=== PATIENT | male | born 1995 | race Two or more races ===

== ENCOUNTER 2023-03-19 13:12 | Emergency (ER) | payer OTHER ==
--- NOTE | 2023-03-19 14:04 | RAD REPORT ---
EXAM DESCRIPTION: CT - Stone Protocol - 03/19/2023 1:42 pm CLINICAL HISTORY: Abdominal pain. Right flank pain COMPARISON: None. TECHNIQUE: Computed axial tomography of the abdomen pelvis was obtained without oral or IV contrast. Lack of IV and oral contrast limits evaluation of solid organs, appendix, bowel, and vessels. Doll l reformatted images were obtained and reviewed. All CT scans are performed using dose optimization technique as appropriate and may include automated exposure control or mA/KV adjustment according to patient size. FINDINGS: A renal calculus is not seen. An ureteral calculus is not noted. A bladder calculus is not present. No hydronephrosis The liver, spleen, pancreas and adrenals appear grossly normal There is no evidence of diverticulitis. The appendix appears normal Small umbilical hernia IMPRESSION: Negative for a genitourinary calculus
[2023-03-19] MEDS ORDERED: KETOROLAC 30 MG/ML INJ ONE (14:18)
[2023-03-19 14:28] LABS: Specific Gravity 1.005 (1.005-1.030); Urine Bacteria <20 /HPF (<20); Urine Bilirubin NEGATIVE (Negative); Urine Blood Negative (Negative); Urine Clarity Clear (Clear); Urine Color Colorless (Yellow); Urine Glucose NEGATIVE (Negative); Urine Mucus Slight /HPF (None Seen); Urine Protein NEGATIVE (Negative); Urine RBC <5 /HPF (None Seen); Urine Urobilinogen Normal (Normal); Urine pH 5.5 (5.0-7.0)
--- NOTE | 2023-03-19 14:31 | EDPHYS ---
Physician Documentation [facility] Name: Cheyenne Dudley Age: 27 yrs Sex: Male : 1995 Arrival Date: 03/19/2023 Time: 13:12 Bed 14 Private MD: ED Physician Vilma Longoria HPI: 03/19 14:38 This 27 yrs old [place] Male presents to ER via Ambulatory with complaints of Possible snw Kidney Stone. 14:38 Onset: The symptoms/episode began/occurred 2 week(s) ago, and became persistent. snw Associated signs and symptoms: Pertinent positives: hematuria. pt was working on a vessel and had left flank pain, hematuria. Tx per vessel MD, tramadol. Pt brought pictures of recently passed calculi x 3. States he is feeling better but has lower back pain with worsening on lifting. Pt notes he does drink excess caffeine.. Historical: - Allergies: 13:33 No Known Allergies; ll1 - PMHx: 13:33 None; ll1 - PSHx: 13:33 None; ll1 - Immunization history:: Adult Immunizations up to date. - Social history:: Smoking status: Patient denies any tobacco usage or history of. ROS: 14:35 Constitutional: Negative for fever, chills, and weight loss, Eyes: Negative for injury, snw pain, redness, and discharge, ENT: Negative for injury, pain, and discharge, Neck: Negative for injury, pain, and swelling, Cardiovascular: Negative for chest pain, palpitations, and edema, Respiratory: Negative for shortness of breath, cough, wheezing, and pleuritic chest pain, Abdomen/GI: Negative for abdominal pain, nausea, vomiting, diarrhea, and constipation, 14:35 Back: Positive for pain at rest, pain with movement, flank pain, Exam: 14:38 Constitutional: This is a well developed, well nourished patient who is awake, alert, snw and in no acute distress. Head/Face: Normocephalic, atraumatic. Eyes: Pupils equal round and reactive to light, extra-ocular motions intact. Lids and lashes normal. Conjunctiva and sclera are non-icteric and not injected. Cornea within normal limits. Periorbital areas with no swelling, redness, or edema. ENT: Nares patent. No nasal discharge, no septal abnormalities noted. Tympanic membranes are normal and external auditory canals are clear. Oropharynx with no redness, swelling, or masses, exudates, or evidence of obstruction, uvula midline. Mucous membranes moist. Neck: Trachea midline, no thyromegaly or masses palpated, and no cervical lymphadenopathy. Supple, full range of motion without nuchal rigidity, or vertebral point tenderness. No Meningismus. Chest/axilla: Normal chest wall appearance and motion. Nontender with no deformity. No lesions are appreciated. Cardiovascular: Regular rate and rhythm with a normal S1 and S2. No gallops, murmurs, or rubs. Normal PMI, no JVD. No pulse deficits. Respiratory: Lungs have equal breath sounds bilaterally, clear to auscultation and percussion. No rales, rhonchi or wheezes noted. No increased work of breathing, no retractions or nasal flaring. Abdomen/GI: Soft, non-tender, with normal bowel sounds. No distension or tympany. No guarding or rebound. No evidence of tenderness throughout. Skin: Warm, dry with normal turgor. Normal color with no rashes, no lesions, and no evidence of cellulitis. MS/ Extremity: Pulses equal, no cyanosis. Neurovascular intact. Full, normal range of motion. Neuro: Awake and alert, GCS 15, oriented to person, place, time, and situation. Cranial nerves II-XII grossly intact. Motor strength 5/5 in all extremities. Sensory grossly intact. Cerebellar exam normal. Normal gait. Psych: Awake, alert, with orientation to person, place and time. Behavior, mood, and affect are within normal limits. 14:38 Back: pain, that is mild, that is moderate, of the low back area, Vital Signs: 13:32 BP 143 / 90; Pulse 109; Resp 18; Temp 99.1; Pulse Ox 100% ; Weight 100 kg; Height 5 ft. ll1 7 in. ; Pain 5/10; 14:30 BP 114 / 59; Pulse 85; Resp 16; Pulse Ox 98% on R/A; eh3 13:32 Body Mass Index 34.53 (100.00 kg, 170.18 cm) ll1 13:32 Pain Scale: Adult ll1 MDM: 13:36 Patient medically screened. snw 14:33 Differential diagnosis: viral Infection, bacterial infection, UTI, renal calculi. Data snw reviewed: vital signs, nurses notes, lab test result(s), radiologic studies, CT scan. I considered the following discharge prescriptions or medication management in the emergency department Medications were administered in the Emergency Department. See MAR. Counseling: I had a detailed discussion with the patient and/or guardian regarding the historical points, exam findings, and any diagnostic results supporting the discharge/admit diagnosis, lab results, radiology results, the need for outpatient follow up, to return to the emergency department if symptoms worsen or persist or if there are any questions or concerns that arise at home. Response to treatment: the patient's symptoms have markedly improved after treatment. Special discussion: I have referred the patient to see his PCP for further evaluation of high blood pressure. Based on the history and exam findings, there is no indication for further emergent testing or inpatient evaluation. I discussed with the patient/guardian the need to see the primary care provider for further evaluation of the symptoms. I discussed with the patient/guardian the need to see the urologist for further evaluation of the symptoms. 14:34 ED course: Pt produced [place] of [place] Will make snw sure urine is not infected and discuss ways to decrease frequency of same problem. 03/19 13:36 Order name: Urine W/Microscopic (UAM); Complete Time: 14:29 snw 03/19 13:36 Order name: CT Stone Protocol; Complete Time: 14:14 snw 03/19 14:14 Order name: PO challenge; Complete Time: 15:01 snw Administered Medications: 14:10 Drug: Ketorolac IM 30 mg IM once Route: IM; Site: left deltoid; eh3 15:00 Follow up: Response: No adverse reaction eh3 14:45 Drug: Magnesium PO 400 mg PO once Route: PO; eh3 15:00 Follow up: Response: No adverse reaction eh3 14:45 Drug: Flomax PO 0.4 mg PO once Route: PO; eh3 15:00 Follow up: Response: No adverse reaction eh3 Disposition Summary: 03/19/23 14:30 Discharge Ordered Notes: Location: Home snw Condition: Stable snw Diagnosis - Unspecified renal colic - Recent passage of calculus snw - Low back pain snw Followup: snw - With: Emergency Department - When: As needed - Reason: Worsening of condition Followup: snw - With: Private Physician - When: 10 - 14 days - Reason: Recheck today's complaints, Continuance of care, Re-evaluation by your physician Discharge Instructions: - Discharge Summary Sheet snw - Renal Colic snw - How to Use Cold Therapy snw - Dietary Guidelines to Help Prevent Kidney Stones snw - Rehydration, Adult snw - Heat Therapy snw - Back Exercises snw Forms: - Medication Reconciliation Form snw - Thank You Letter snw - Antibiotic Education snw - Prescription Opioid Use snw - Patient Portal Instructions snw - Leadership Thank You Letter snw Prescriptions: - Mobic 7.5 mg Oral Tablet - take 1 tablet ORAL route once daily take with food; 20 tablet; Refills: 0, snw Product Selection Permitted - orphenadrine citrate 100 mg Oral Tablet Sustained Release - take 1 tablet ORAL route 2 times per day As needed; 20 tablet; Refills: 0, snw Product Selection Permitted Signatures: Dispatcher [employer] Veronica Thomas, SHY-C JEWELRY SALES REPRESENTATIVE-Csnw Ty Sullivan, RN RN ll1 Camila Kline RN RN eh3
--- NOTE | 2023-03-19 14:31 | ER ---
Nurse's Notes [facility] Name: Cheyenne Dudley Age: 27 yrs Sex: Male : 1995 Arrival Date: 03/19/2023 Time: 13:12 Bed 14 Private MD: Diagnosis: Unspecified renal colic-Recent passage of calculus;Low back pain Presentation: 03/19 13:32 Chief complaint: Patient states: R lower back pain and small blood clots in his urine ll1 for 1 week. Coronavirus screen: Vaccine status: Patient reports receiving the 2nd dose of the covid vaccine. Client denies travel out of the [place] in the last 14 days. At this time, the client does not indicate any symptoms associated with coronavirus-19. Ebola Screen: Patient denies travel to an Ebola-affected area in the 21 days before illness onset. Initial Sepsis Screen: Does the patient meet any 2 criteria? No. Patient's initial sepsis screen is negative. Does the patient have a suspected source of infection? Yes: Dysuria/Frequency/Urgency/UTI. Risk Assessment: Do you want to hurt yourself or someone else? Patient reports no desire to harm self or others. Onset of symptoms was March 03, 2023. 13:32 Method Of Arrival: Ambulatory ll1 13:32 Acuity: PITER 3 ll1 Historical: - Allergies: 13:33 No Known Allergies; ll1 - PMHx: 13:33 None; ll1 - PSHx: 13:33 None; ll1 - Immunization history:: Adult Immunizations up to date. - Social history:: Smoking status: Patient denies any tobacco usage or history of. Screenin:00 [facility] ED Fall Risk Assessment (Adult) Score/Fall Risk Level 0 - 2 = Low Risk. Abuse eh3 screen: Denies threats or abuse. Denies injuries from another. Nutritional screening: No deficits noted. Tuberculosis screening: No symptoms or risk factors identified. Assessment: 14:00 General: Appears in no apparent distress. uncomfortable, Behavior is calm, cooperative, eh3 appropriate for age. Pain: Complains of pain in low back area. Neuro: Level of Consciousness is awake, alert, obeys commands, Oriented to person, place, time, situation. Cardiovascular: Capillary refill < 3 seconds Patient's skin is warm and dry. Respiratory: Airway is patent Respiratory effort is even, unlabored, Respiratory pattern is regular, symmetrical. GI: Abdomen is round non-distended, Bowel sounds present X 4 quads. Abd is soft and non tender X 4 quads. Derm: Skin is pink, warm \T\ dry. Musculoskeletal: Circulation, motion, and sensation intact. Vital Signs: 13:32 BP 143 / 90; Pulse 109; Resp 18; Temp 99.1; Pulse Ox 100% ; Weight 100 kg; Height 5 ft. ll1 7 in. ; Pain 5/10; 14:30 BP 114 / 59; Pulse 85; Resp 16; Pulse Ox 98% on R/A; eh3 13:32 Body Mass Index 34.53 (100.00 kg, 170.18 cm) ll1 13:32 Pain Scale: Adult ll1 ED Course: 13:15 Patient arrived in ED. mr 13:22 [facility] Veronica[facility] snw 13:22 Vilma Longoria MD is Attending Physician. snw 13:33 Triage completed. ll1 13:34 Arm band placed on. ll1 13:44 CT Stone Protocol In Process Unspecified. EDMS 14:00 Patient has correct armband on for positive identification. Bed in low position. Call eh3 light in reach. Side rails up X2. Provided Education on: Use of call azar. Pulse ox on. NIBP on. 14:02 Camila Kline, RN is Primary Nurse. eh3 15:01 Diet: Patient given water. Tolerated well. eh3 15:04 No provider procedures requiring assistance completed. Patient did not have IV access eh3 during this emergency room visit. Administered Medications: 14:10 Drug: Ketorolac IM 30 mg IM once Route: IM; Site: left deltoid; eh3 15:00 Follow up: Response: No adverse reaction eh3 14:45 Drug: Magnesium PO 400 mg PO once Route: PO; eh3 15:00 Follow up: Response: No adverse reaction eh3 14:45 Drug: Flomax PO 0.4 mg PO once Route: PO; eh3 15:00 Follow up: Response: No adverse reaction eh3 Medication: 14:00 VIS not applicable for this client. eh3 Outcome: 14:30 Discharge ordered by . snw 15:04 Discharged to home ambulatory, eh3 15:04 Condition: stable 15:04 Discharge instructions given to patient, Instructed on discharge instructions, follow up and referral plans. medication usage, Demonstrated understanding of instructions, follow-up care, medications, Prescriptions given X 2, 15:31 Patient left the ED. eh3 Signatures: Dispatcher [employer] EDMS Veronica Null, MACHINE OPERATOR TRANSPLANTER-C MACHINE OPERATOR TRANSPLANTER-Csnw Jolynn Khoury, Reg Reg mr Ty Sullivan, RN RN ll1 Camila Kline RN RN eh3
[2023-03-19] MEDS ORDERED: MAGNESIUM OXIDE 400 MG TAB ONE (14:56)
[2023-03-19] MEDS ORDERED: TAMSULOSIN 0.4 MG SR CAP ONE (14:56)
[2023-03-19 16:38] VITALS: BP 114/59; TEMP 99.1; O2SAT 98
== END 2023-03-19 15:31 | disposition home or self-care (01) ==
LOC: ER 13:12
DX: N23 Unspecified renal colic (principal); M54.50 Low back pain, unspecified
CPT/HCPCS: 74176; 76377; 81001